=== PATIENT | female | born 1935 | race Caucasian/White ===

== ENCOUNTER → 2016-12-28 | Outpatient (CLI) | payer BC ==
[~2016-12-28] MED LIST: ASPEC325 PO; CALC600T9 PO; DILT120C67 PO; HYDR-5688 PO; LEVO88TA PO; METO25TA56 PO; MULT-506 PO; OXYSR10 PO
[2016-12-28 10:07] LABS: ALT/SGPT 15 U/L (12-78); AST/SGOT 9 U/L (15-37); BLOOD UREA NITROGEN 11 mg/dl (7-18); BUN/CREATININE RATIO 16.3 (10-20); CALCIUM 9.1 mg/dl (8.5-10.1); CARBON DIOXIDE 28 mmol/L (21-32); CHLORIDE 107 mmol/L (98-107); CREATININE 0.66 mg/dl (0.60-1.20); GLUCOSE 110 mg/dl (70-99); POTASSIUM 3.8 mmol/L (3.5-5.1); SODIUM 143 mmol/L (136-145)
[2016-12-28 10:18] LABS: ALKALINE PHOSPHATASE 123 U/L (45-117); CHOLESTEROL 217 mg/dl (0-200); CHOLESTEROL/HDL RATIO 4.1; ESTIMATED AVERAGE GLUCOSE 117 mg/dl; HA1C FLAG Normal (Normal); HDL CHOLESTEROL 53 mg/dl; LDL CHOLESTEROL CALCULATED 133 mg/dl; TRIGLYCERIDES 155 mg/dl (0-150); VERY LOW DENSITY LIPOPROT CALC 31 mg/dl
== END | disposition home or self-care (01) ==
LOC: C.LAB1850 07:24
PROVIDERS: ATTEND Family Medicine
DX: M81.0 Age-related osteoporosis without current pathological fracture (principal); E03.9 Hypothyroidism, unspecified; I11.9 Hypertensive heart disease without heart failure; R73.01 Impaired fasting glucose; Z13.220 Encounter for screening for lipoid disorders

== ENCOUNTER → 2017-02-26 | Outpatient (CLI) | payer BC ==
[2017-02-26 17:56] LABS: C-REACTIVE PROTEIN 0.56 mg/dl (0-0.29); RHEUMATOID FACTOR 14.5 U/mL (0-15)
[2017-03-01 20:19] LABS: ALBUMIN 3.8 G/DL (3.8-4.8); GAMMA GLOBULIN 0.8 G/DL (0.8-1.7); HLA-B27** TC 528X NEGATIVE (NEGATIVE); TOTAL PROTEIN 6.3 G/DL (6.2-8.3)
== END | disposition home or self-care (01) ==
LOC: C.LAB1850 16:17
PROVIDERS: ATTEND Internal Medicine Rheumatology
DX: M25.50 Pain in unspecified joint (principal); R89.4 Abnormal immunological findings in specimens from other organs, systems and tissues; M54.5 Low back pain

== ENCOUNTER → 2017-03-04 | Outpatient (CLI) | payer BC ==
--- NOTE | 2017-03-04 14:53 | DIAGNOSTIC IMAGING REPORT ---
BONE SCAN WHOLE BODY CLINICAL HISTORY: Arthralgias of multiple sites. Low back pain. COMPARISON STUDY: Whole body bone scan May 12, 2009. TECHNIQUE: 26.9 mCi of technetium 99 MDP was injected IV at 11:30 AM on March 04, 2017. Whole body imaging was performed in the anterior and posterior projections 3 hours following injection. FINDINGS: Expected soft tissue and renal uptake is present. 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 There is mild uptake adjacent to the femoral component of the left knee arthroplasty. There is mild uptake within portions of the cervical spine, sternoclavicular joints and shoulders as well as the right midfoot. There is no suspicious radiotracer uptake. IMPRESSION: 1. Mild uptake within the shoulders, sternoclavicular joints and cervical spine which is degenerative. 2. No scintigraphic evidence of skeletal metastatic disease. Electronically signed by: Pedrito Banegas M.D. 03/04/2017 2:51 PM Dictated Date/Time: 03/04/2017 2:47 PM
== END | disposition home or self-care (01) ==
LOC: C.NUCL 11:06
PROVIDERS: ATTEND Internal Medicine Rheumatology
DX: M25.50 Pain in unspecified joint (principal); M54.5 Low back pain; R89.4 Abnormal immunological findings in specimens from other organs, systems and tissues